=== PATIENT | male | born 2000 | race Caucasian/White ===

== ENCOUNTER 2019-09-21 16:15 | Emergency (ER) | payer MEDICAID ==
[~2019-09-21] VITALS: Ht 177.8 cm; Wt 63.6 kg
[2019-09-21 16:22] VITALS: Ht 177.8 cm; Wt 63.6 kg
[2019-09-21] MEDS ORDERED: THORAZINE10 MG (16:23)
[2019-09-21] MEDS ORDERED: BUPROPION HCL75 MG (16:23)
[2019-09-21] MEDS ORDERED: TRILEPTAL600 MG (16:23)
[2019-09-21 17:47] LABS: APPEARANCE CLEAR (CLEAR); BILIRUBIN NEGATIVE (NEGATIVE); COLOR YELLOW (YELLOW); GLUCOSE NEGATIVE (NEGATIVE); KETONE NEGATIVE (NEGATIVE); NITRITE NEGATIVE (NEGATIVE); PROTEIN NEGATIVE (NEGATIVE); UROBILINOGEN NORMAL (NORMAL)
[2019-09-21 17:50] LABS: HEMOGLOBIN 13.9 g/dL (13.5-17.5); MCH 31.8 pg (26.0-34.0); MCHC 34.8 g/dL (31.0-37.0); MCV 91.5 fL (80.0-100.0); MEAN PLATELET VOLUME 10.8 fL (7.4-10.4); NEUTROPHILS 48.3 % (40-80); PLATELET COUNT 227 10x3/uL (130-400); RBC 4.37 10x6/uL (4.20-6.10); RDW 13.3 % (11.5-14.5); WBC 6.6 10x3/uL (4.8-10.8)
[2019-09-21 17:56] LABS: CALC OSMOLALITY 281 mosm/kg (275-300); CARBON DIOXIDE 27.9 mmol/L (21.0-32.0); CHLORIDE - SERUM 107 mmol/L (98-107); GLUCOSE 94 mg/dL (74-106); POTASSIUM - SERUM 3.5 mmol/L (3.5-5.1); SODIUM 142 mmol/L (136-145); UREA NITROGEN 11 mg/dL (7-18); eGFR NON AFRICAN AMERICAN > 90 mL/min (90-120)
[2019-09-21 17:59] LABS: UDS - AMPHET NEGATIVE QUAL (NEGATIVE); UDS - BARB NEGATIVE QUAL (NEGATIVE); UDS - BENZO NEGATIVE QUAL (NEGATIVE); UDS - COCAINE NEGATIVE QUAL (NEGATIVE); UDS - OPIATE NEGATIVE QUAL (NEGATIVE); UDS - PCP NEGATIVE QUAL (NEGATIVE); UDS - THC NEGATIVE QUAL (NEGATIVE)
[2019-09-21 18:01] LABS: ALBUMIN 3.6 g/dL (3.4-5.0); ALKALINE PHOSPHATASE 90 U/L (46-116); ALT (SGPT) 34 U/L (10-68); MAGNESIUM - SERUM 1.5 mg/dL (1.8-2.4); PROTEIN - SERUM 7.3 g/dL (6.4-8.2)
--- NOTE | 2019-09-21 19:38 | NUR ---
PT IS A HIGH RISK PER ASSESSMENT. PT WILL BE PLACED AT [facility] AND HE IS AGREEABLE TO THIS. SITTER AT BEDSIDE PER DR. LOWRY. ATTENDING NOTIFIED OF ASSESSMENT RESULTS. SAFETY PLAN INITIATED. PT HAS A HX OF SCHIZOPHRENIA. PT HAS A HX OF SUICIDE IN 2016 WHEN HE ATTEMPTED TO HANG SELF.
[2019-09-21 20:40] VITALS: BP 127/60
== END 2019-09-21 20:42 ==
LOC: D.ER 16:15
PROVIDERS: Family Medicine
DX: R45.851 Suicidal ideations (principal); R45.850 Homicidal ideations; F20.9 Schizophrenia, unspecified